=== PATIENT | female | born 1945 | race African-American/Black ===

== ENCOUNTER 2020-12-08 23:51 | Emergency (ER) | payer OTHER, MEDICAID ==
[~2020-12-08] VITALS: Ht 167.6 cm; Wt 72.0 kg
[2020-12-09 02:10] LABS: BASOPHILS % 0.7 % (0.0-2.0); EOSINOPHILS % 1.1 % (0.0-5.0); HEMATOCRIT. 34.8 % (36.0-48.0); HEMOGLOBIN. 11.5 g/dL (12.0-16.0); LYMPHOCYTES % 18.6 % (20.0-50.0); MEAN CORPUSCULAR HEMOGLOBIN 30.5 pg (28.0-32.0); MEAN CORPUSCULAR VOLUME 92.6 fL (81.0-99.0); MEAN PLATELET VOLUME 8.5 fl (7.4-10.4); MONOCYTES % 7.7 % (2.0-8.0); NEUTROPHILS % 71.9 % (40.0-76.0); PLATELET 215 x1000/uL (130-400); RED BLOOD CELL COUNT 3.76 mill/uL (4.2-5.4); RED CELL DISTRIBUTION WIDTH 16.3 % (11.6-14.6)
[2020-12-09 02:16] LABS: CHLORIDE 102 mEq/L (98-107)
[2020-12-09 02:20] LABS: ETHANOL BLOOD < 10 mg/dL
[2020-12-09] MEDS ORDERED: ASPIRIN 81MG TABLET PO NR (03:00)
[2020-12-09] MEDS ORDERED: NITROGLYCERIN OINT 1GM/INCH UDPKT TD NR (03:30)
[2020-12-09 06:10] VITALS: BP 178/82
== END 2020-12-09 06:26 | disposition short-term general hospital (02) ==
LOC: ER 23:51 → CANRESERV 12-09 04:12 → ENRESERV 12-09 04:12 → CANBEDREQ 12-09 04:32 → ER 12-09 06:26
DX: R06.00 Dyspnea, unspecified (principal); D72.829 Elevated white blood cell count, unspecified; R77.8 Other specified abnormalities of plasma proteins; E87.79 Other fluid overload; N18.6 End stage renal disease; Z99.2 Dependence on renal dialysis; I10 Essential (primary) hypertension; I25.2 Old myocardial infarction
CPT/HCPCS: 36415; 71045; 80053; 80320; 83880; 84484; 85025; 93005; 99285; G0480